=== PATIENT | male | born 1990 | race Caucasian/White ===

== ENCOUNTER 2020-08-15 18:26 | Emergency (ER) | payer OTHER ==
[~2020-08-15] VITALS: Ht 182.9 cm; Wt 73.6 kg
--- NOTE | 2020-08-15 18:33 | PHYS DOC ---
Past History Past Medical History: Anxiety (EMILY MICHAUD MD) General Adult EDM: Chief Complaint: NEAR SYCOPE HPI: HPI: Patient is a 30 year old male who presents with above hx and complaints (EMILY MICHAUD MD) HPI: 31-year-old male presents with dizziness for 1 week. Patient states he keeps having a weird feeling like hes going to pass out. Patient reports being under more stress lately and recently had a new baby. Patient denies cough, fever or h/o anxiety. (OLIVIER RUSSELL APRN) Review of Systems: Review of Systems: Constitutional: No fever or chills Eyes: No eye pain or blurred vision Skin: No rash or itching Cardiovascular: No chest pain, syncope, palpitations Respiratory: No cough, reports episodes of SOA Gastrointestinal: No nausea, abdominal pain. Reports nausea. Neurologic: No headaches or focal neurologic deficits Endocrine: No heat or cold intolerance Genitourinary: No incontinence or hematuria Musculoskeletal: No joint pain or swelling Lymphatics: No enlarged lymph nodes Psychiatric: No anxiety or depression (OLIVIER RUSSELL APRN) Physical Exam: PE: Constitutional: Well developed, well nourished, no acute distress, non-toxic appearance. [] HENT: Normocephalic, atraumatic, bilateral external ears normal, oropharynx moist, no oral exudates, nose normal. [] Eyes: PERRLA, EOMI, conjunctiva normal, no discharge. [] Neck: Normal range of motion, no tenderness, supple, no stridor. [] Cardiovascular:Heart rate regular rhythm, no murmur [] Lungs & Thorax: Bilateral breath sounds clear to auscultation [] Abdomen: Bowel sounds normal, soft, no tenderness, no masses, no pulsatile masses. [] Skin: Warm, dry, no erythema, no rash. [] Back: No tenderness, no CVA tenderness. [] Extremities: No tenderness, no cyanosis, no clubbing, ROM intact, no edema. [] Neurologic: Alert and oriented X 3, normal motor function, normal sensory function, no focal deficits noted. [] Psychologic: Affect normal, judgement normal, anxious appearance. [] (OLIVIER RUSSELL APRN) EKG: EKG: My interpretation EKG shows sinus rhythm at 68 bpm. No acute morphology appreciated [] (EMILY MICHAUD MD) EKG: SR, HR 68BPM. Normal intervals. Normal [facility]. (OLIVIER RUSSELL APRN) Radiology/Procedures: Radiology/Procedures: [] (EMILY MICHAUD MD) Radiology/Procedures: EXAM: Chest, single view. HISTORY: Shortness of breath. COMPARISON: None. FINDINGS: A frontal view of the chest is obtained. There is no infiltrate, protrusion or pneumothorax. The heart is normal in size. IMPRESSION: No acute pulmonary finding. Electronically signed by: Nadiya Del Castillo MD (08/15/2020 7:18 PM) [facility] (OLIVIER RUSSELL APRN) Heart Score: Risk Factors: Risk Factors: DM, Current or recent (<one month) smoker, HTN, HLP, family history of CAD, obesity. Risk Scores: Score 0 - 3: 2.5% MACE over next 6 weeks - Discharge Home Score 4 - 6: 20.3% MACE over next 6 weeks - Admit for Clinical Observation Score 7 - 10: 72.7% MACE over next 6 weeks - Early Invasive Strategies (EMILY MICHAUD MD) Course & Med Decision Making: Course & Med Decision Making Pertinent Labs and Imaging studies reviewed. (See chart for details) [] (EMILY MICHAUD MD) Dragon Disclaimer: Dragon Disclaimer: This electronic medical record was generated, in whole or in part, using a voice recognition dictation system. (EMILY MICHAUD MD) Departure Departure: Impression: Primary Impression: Anxiety Additional Impression: SOB (shortness of breath) Disposition: 01 DC HOME SELF CARE/HOMELESS Condition: IMPROVED Patient Instructions: Anxiety and Panic Attacks, [id number] Additional Instructions: Use your inhaler at home as directed. Please make an appointment with your PCP for follow up. Dragon Disclaimer This chart was dictated in whole or in part using Voice Recognition software in a busy, high-work load, and often noisy Emergency Department environment. It may contain unintended and wholly unrecognized errors or omissions. (EMILY MICHAUD MD) Dragon Disclaimer This chart was dictated in whole or in part using Voice Recognition software in a busy, high-work load, and often noisy Emergency Department environment. It may contain unintended and wholly unrecognized errors or omissions. (EMILY MICHAUD MD) Attending Signature Attending Signature I have participated in the care of this patient and I have reviewed and agree with all pertinent clinical information above including history, exam, and recommendations. (EMILY MICHAUD MD) Attending Signature Attending Signature I have participated in the care of this patient and I have reviewed and agree with all pertinent clinical information above including history, exam, and recommendations. (EMILY MICHAUD MD) EMILY MICHAUD MD Aug 15, 2020 18:33 OLIVIER RUSSELL APRN Aug 15, 2020 19:32
--- NOTE | 2020-08-15 19:20 | RAD ---
EXAM: Chest, single view. HISTORY: Shortness of breath. COMPARISON: None. FINDINGS: A frontal view of the chest is obtained. There is no infiltrate, protrusion or pneumothorax . The heart is normal in size. IMPRESSION: No acute pulmonary finding. Electronically signed by: Nadiya Del Castillo MD (08/15/2020 7:18 PM) [facility]
[2020-08-15] MEDS ORDERED: ALBUTEROL SULFATE 8GM INHALER. INH ONE (19:45)
[2020-08-15 19:57] LABS: BASO % 0 % (0-3); EOS % 0 % (0-3); HEMATOCRIT 44.4 % (39.0-53.0); HEMOGLOBIN 15.4 g/dL (13.0-17.5); LYMPH # 1.2 x10^3/uL (1.0-4.8); LYMPH % 13 % (24-48); MEAN CORPUSCULAR HEMOGLOBIN 33 pg (25-35); MEAN CORPUSCULAR HGB CONC 35 g/dL (31-37); MEAN CORPUSCULAR VOLUME 95 fL (79-100); MONO # 0.6 x10^3/uL (0.0-1.1); MONO % 6 % (0-9); NEUT # 7.4 x10^3uL (1.8-7.7); NEUT % 81 % (31-73); PLATELET COUNT 243 x10^3/uL (140-400); RED BLOOD COUNT 4.68 x10^6/uL (4.30-5.70); RED CELL DISTRIBUTION WIDTH 13.1 % (11.5-14.5); WHITE BLOOD COUNT 9.2 x10^3/uL (4.0-11.0)
[2020-08-15 20:04] LABS: BARBITURATES NEG (NEG); BENZODIAZEPINES NEG (NEG); CANNABINOIDS NEG (NEG); COCAINE NEG (NEG); METHADONE NEG (NEG); OPIATES NEG (NEG); PHENCYCLIDINE NEG (NEG)
[2020-08-15 20:06] LABS: AMPHETAMINE/METHAMPHETAMINE NEG (NEG)
[2020-08-15 20:14] LABS: CALCIUM 9.8 mg/dL (8.5-10.1); CREATININE 1.2 mg/dL (0.7-1.3); GFR 71.1; POTASSIUM 3.7 mmol/L (3.5-5.1)
[2020-08-15 20:25] LABS: ALBUMIN 4.5 g/dL (3.4-5.0); ALBUMIN/GLOBULIN RATIO 1.5 (1.0-1.7); TOTAL BILIRUBIN 0.4 mg/dL (0.2-1.0); TOTAL PROTEIN 7.5 g/dL (6.4-8.2)
[2020-08-15 21:06] VITALS: BP 143/94
--- NOTE | 2020-08-16 06:28 | EKG ---
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
== END 2020-08-15 21:57 | disposition home or self-care (01) ==
LOC: ER 18:26
DX: F41.9 Anxiety disorder, unspecified (principal); R06.02 Shortness of breath
CPT/HCPCS: 36415; 71045; 80053; 80307; 84484; 85025; 93005; 94640; 99285; J7613; 94664

== ENCOUNTER 2020-08-19 17:31 | Emergency (ER) | payer OTHER ==
[~2020-08-19] VITALS: Ht 182.9 cm; Wt 71.5 kg
--- NOTE | 2020-08-19 18:39 | RAD ---
AP chest. HISTORY: Short of breath, asthma, history of smoker AP view was taken of the chest. Lungs are clear. Heart is normal in size. There is no pleural effusio n. IMPRESSION: 1. No acute chest disease. Electronically signed by: Azam Salas MD (08/19/2020 6:37 PM) [id number]
--- NOTE | 2020-08-19 18:55 | PHYS DOC ---
Past History Past Medical History: Anxiety, GERD Past Surgical History: No Surgical History Alcohol Use: None General Adult EDM: Chief Complaint: SHORTNESS OF BREATH HPI: HPI: 30 yo M presents the ED with complaints of " I cannot get anything without my stomach feeling full." Reports he was here a few days ago for this and it's getting worse. Has associated palpitations, racing negative thoughts and difficulties breathing. 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 Reports he drinks a lot of caffeinated beverages including coffee and monsters "because of my job." No history of exertional syncope. No FH autoimmunie disease, cancer, cardiac arrhythmias, sudden under the age of 50, clotting disorders, connective tissue disease or aortic disease. Has never been told he has glucose problems. States he can't eat because his stomach immediately increases with pressure and feels full- has only eaten yogurt today. Denies any sleeping problems. No associated diarrhea, abdominal or back pain, leg swelling or hemoptysis. Review of Systems: Review of Systems: Constitutional: Denies fever or chills Eyes: Denies change in visual acuity HENT: Denies nasal congestion or sore throat Respiratory: Denies cough or shortness of breath Cardiovascular: Denies chest pain or edema GI: Denies vomiting, diarrhea : Denies dysuria or hematuria Musculoskeletal: Denies back pain or joint pain Integument: Denies rash Neurologic: Denies headache, focal weakness or sensory changes Endocrine: Denies polyuria or polydipsia Lymphatic: Denies swollen glands Psychiatric: Denies depression, SI or HI Allergies: Allergies: Allergies Coded Allergies Type Severity Reaction Last Updated Verified No Known Drug Allergies 08/15/20 No Physical Exam: PE: Constitutional: Well developed, well nourished, no acute distress, non-toxic appearance. HENT: Normocephalic, atraumatic, Eyes: EOMI, conjunctiva normal, no discharge. Neck: Normal range of motion, supple, Cardiovascular: S1/2 present, regular rhythm Lungs & Thorax: Speaking in full sentences, bilateral equal chest rise, no tachypnea or increased work of breathing Abdomen: soft, no tenderness, Skin: Warm, dry, no erythema, no rash. [] Back: No tenderness, no CVA tenderness. [] Extremities: No tenderness, no cyanosis, no edema Neurologic: Alert and oriented X 3, normal motor function, normal sensory function, no focal deficits noted. [] Psychologic: Affect normal, judgement normal, mood -anxious, rapid speech/d esperate for an explanation EKG: EKG: [] Sinus rhythm 85 bpm, no axis deviation, normal intervals, no T wave inversions, no ST elevations or ST depressions Radiology/Procedures: Radiology/Procedures: IMAGING REPORT Signed PATIENT: DEREK RASHID ACCOUNT: [id number] : 1990 LOCATION: ER AGE: 30 SEX: M EXAM STATUS: REG ER ORD. PHYSICIAN: ADAL PALACIOS DO REASON: SHORTNESS OF BREATH HX SMOKER, ASTHMA PROCEDURE: CHEST AP ONLY AP chest. HISTORY: Short of breath, asthma, history of smoker AP view was taken of the chest. Lungs are clear. Heart is normal in size. There is no pleural effusion. IMPRESSION: 1. No acute chest disease. Electronically signed by: Azam Salas MD (08/19/2020 6:37 PM) [id number] DICTATED AND SIGNED BY: AZAM SALAS MD DATE: 08/19/20 1837 CC: GERARD AARON DO; ADAL PALACIOS DO ~MTH0 0 Heart Score: Risk Factors: Risk Factors: DM, Current or recent (<one month) smoker, HTN, HLP, family history of CAD, obesity. Risk Scores: Score 0 - 3: 2.5% MACE over next 6 weeks - Discharge Home Score 4 - 6: 20.3% MACE over next 6 weeks - Admit for Clinical Observation Score 7 - 10: 72.7% MACE over next 6 weeks - Early Invasive Strategies Course & Med Decision Making: Course & Med Decision Making Pertinent Labs and Imaging studies reviewed. (See chart for details) Labs and drug screen reviewed from 4 days prior -unremarkable. Patient's history and physical exam is consistent with generalized anxiety. He reports he has an appointment with his PMD tomorrow -I advised to have his thyroid checked, avoid caffeine and exercise at least 3-4 times a week. Will discharge home with strict ED return precautions were given for abdominal or back pain, hallucinations, depression, suicide or homicidal ideations. Encouraged urgent outpatient follow-up with PMD and psychiatry (we discussed anxiety tx options and CBT). Life-threatening processes were considered but are low suspicion at this time, given history, physical exam and ED workup. Pt was educated on all prescription medications and adverse effects. All patient's questions were answered and pt was stable at time of discharge. Life/limb-threatening differential includes but is not limited to, end organ damage/sepsis, trauma/abuse/neglect, neurologic deficit, alcohol/drug ingestion, toxidrome, suicidal/homicidal ideations plans or attempts, psychosis or mental illness resulting in self neglect and inability to care for self. I spoken with the patient and her caregivers. I explained the patient's condition, diagnoses and treatment plan based on the information available to me at this time. I have answered the patient and her caregiver's questions and addressed any concerns. The patient and her caregivers have a good understanding of patient's diagnosis, condition and treatment plan as can be expected at this point. Vital signs have been stable. Patient's condition is stable and appropriate for discharge from the emergency department. Patient will pursue further outpatient evaluation with primary care physician or other designated or consulting physician as outlined in the discharge instructions. The patient and/or caregivers are agreeable to this plan of care and follow-up instructions have been explained in detail. The patient and/or caregivers have received these instructions in written form and have expressed an understanding of the discharge instructions. The patient and/or caregivers are aware that any significant change of condition or worsening of symptoms should prompt immediate return to this or the closest emergency department or call to 911. Lily Disclaimer: Lily Disclaimer: This electronic medical record was generated, in whole or in part, using a voice recognition dictation system. Departure Departure: Impression: Primary Impression: Anxiety Additional Impression: Early satiety Disposition: 01 DC HOME SELF CARE/HOMELESS Condition: STABLE Referrals: GERARD AARON DO (PCP) FOLLOW UP WITH FAMILY MEDICINE: [facility], [facility] [address], [facility] Instructions: Anxiety and Panic Attacks Additional Instructions: FOLLOW UP WITH PSYCHIATRY: [facility] [address], [address] [place] [address] [facility] [address] [place] [address] Kilo GANDHI [address], [address] [place] [address] EMERGENCY DEPARTMENT GENERAL DISCHARGE INSTRUCTIONS Thank you for coming to [facility] (ED) today and trusting us with you care. We trust that you had a positivie experience in our Emergency Department. If you wish to speak to the department management, you may call the director at [phone]. YOUR FOLLOW UP INSTRUCTIONS ARE FOLLOWS: 1. Do you have a private Doctor? If you do not have a private doctor, please ask for a resource list of physicians or clinics that may be able to assist you with follow up care. 2. The Emergency Physician has interpreted your x-rays. The X-Ray specialist will also review them. If there is a change in the findings, you will be notified in 48 hours when at all possible. 3. A lab test or culture has been done, your results will be reviewed and you will be notified if you need a change in treatment. ADDITIONAL INSTRUCTIONS AND INFORMATION: 1. Your care today has been supervised by a physician who is specially trained in emergency care. Many problems require more than one evaluation for a complete diagnosis and treatment. We recommend that you schedule your follow up appointment as recommended to ensure complete treatment of you illness or injury. If you are unable to obtain follow up care and continue to have a problem, or if your condition worsens, we recommend that you return to the ED. 2. We are not able to safely determine your condition over the phone nor are we able to give sound medical advice over the phone. For these safety reasons, if you call for medical advice we will ask you to come to the ED for further evaluation. 3. If you have any questions regarding these discharge instructions please call the ED at [phone]. SAFETY INFORMATION: In the interest of safety, wellness, and injury prevention; we encourage you to wear your sealbelt, if you smoke; quite smoking, and we encourage family to use a protective helmet for bicycling and other sporting events that present an increased risk for head injury. IF YOUR SYMPTOMS WORSEN OR NEW SYMPTOMS DEVELOP, OR YOU HAVE CONCERNS ABOUT YOUR CONDITION; OR IF YOUR CONDITION WORSENS WHILE YOU ARE WAITING FOR YOUR FOLLOW UP APPOINTMENT; EITHER CONTACT YOUR PRIMARY CARE DOCTOR, THE PHYSICIAN WHOSE NAME AND NUMBER YOU WERE GIVEN, OR RETURN TO THE ED IMMEDIATELY. Scripts Hydroxyzine Hcl (HYDROXYZINE HCL) 25 Mg Tablet 1 TAB PO PRN BID PRN for ANXIETY / AGITATION, #10 TAB 0 Refills Be careful as this medication may make you mildly tired. I recommend not driving on this medication or operating heavy machinery. Prov: ADAL PALACIOS DO 08/19/20 ADAL PALACIOS DO Aug 19, 2020 18:55
[2020-08-19] MEDS ORDERED: HYDR25TA PO (19:24)
[2020-08-19 19:27] VITALS: BP 122/76
[2020-08-19] MEDS ORDERED: ALPRAZolam 0.25 MG TABLET PO ONE (19:30)
[2020-08-19] MEDS ORDERED: LIDO:MAALOX 1:1 20 ML SINGLE DOSE. PO ONE (19:30)
--- NOTE | 2020-08-19 23:17 | EKG ---
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
== END 2020-08-19 19:45 | disposition home or self-care (01) ==
LOC: ER 17:31
DX: F41.9 Anxiety disorder, unspecified (principal); R68.81 Early satiety; K21.9 Gastro-esophageal reflux disease without esophagitis
CPT/HCPCS: 71045; 93005; 99283